=== PATIENT | female | born 1970 ===

== ENCOUNTER 2017-04-13 13:36 | Emergency (ER) | payer SELFPAY ==
--- NOTE | 2017-04-13 13:44 | ER Report ---
History and Physical Time Seen By MD: 13:43 HPI/ROS CHIEF COMPLAINT: Head injury HISTORY OF PRESENT ILLNESS: This is a 46-year-old female who presents to the emergency department with her mother for a head injury. The patient states that at about 8:30 this morning she was walking across a street in [facility] slipped on some ice and fell down to the ground landing on her bottom, and then hit the left side of her head on a wall patient states she is unsure if she lost consciousness, if so it was "for just a few seconds". Patient states that she did have a headache following the injury and did take some Tylenol for the headache. The headache has since then resolved. She does have a "bump" to the left side of her parietal region. Patient denies nausea or vomiting. Patient has no other complaints. Patient states they are traveling through and heading back to [place]. Her oxygen saturation is 88-89% on room air while in the room, she states that she used to wear oxygen but no longer requires it. The patient does have a healing bruise to her left zygoma, she states this is from accidentally hitting herself in the face several days ago with a plastic box. She is anxious, she states she has a history of anxiety, depression and personality disorder. REVIEW OF SYSTEMS: Constitutional: No fever, no chills. Eyes: No discharge. ENT: No sore throat. Cardiovascular: No chest pain, no palpitations. Respiratory: No cough, no shortness of breath. Gastrointestinal: No abdominal pain, no vomiting. Genitourinary: No hematuria. Musculoskeletal: No back pain. Skin: No rashes. Neurological: As above. Allergies: Coded Allergies: Cephalosporins (Verified Allergy, Unknown, 04/13/17) ciprofloxacin (Verified Allergy, Unknown, 04/13/17) clarithromycin (Verified Allergy, Unknown, 04/13/17) sulfamethoxazole (Verified Allergy, Unknown, 04/13/17) trimethoprim (Verified Allergy, Unknown, 04/13/17) Past Medical/Surgical History Patient has a past medical and surgical history of migraines, hypertension, asthma, pneumonia, borderline personality, anxiety, depression, multiple suicide attempts, cholecystectomy, uterine ablation. Reviewed Nurses Notes: Yes Constitutional Vital Sign - Last 24 Hours 04/13/17 04/13/17 04/13/17 04/13/17 13:43 13:44 14:00 14:17 Temp 98.9 Pulse 96 Resp 24 B/P (MAP) 176/101 176/101 (126) 165/103 (123) 141/133 (136) Pulse Ox 87 O2 Delivery Room Air 04/13/17 04/13/17 14:30 14:45 B/P (MAP) 157/98 (117) 149/92 (111) Physical Exam General Appearance: The patient is alert, has no immediate need for airway protection and no signs of toxicity, mildly anxious. Has a therapy dog at bedside. Eyes: Pupils equal and round no pallor or injection. EOMs intact bilaterally. ENT, Mouth: Mucous membranes are moist. TM's intact bilaterally, landmarks noted , cone of light noted, no injection, no hemotympanum. Nasal mucosa pink and moist. Respiratory: There are no retractions, lungs are clear to auscultation. Cardiovascular: Regular rate and rhythm, no murmurs, clicks or rubs. Gastrointestinal: Abdomen is soft and non tender, no masses, bowel sounds normal. Neurological: Alert and oriented 4. Moving all extremity. Following all commands. No focal neuro deficits. Negative Nexus criteria. Skin: Warm and dry, no rashes. Healing bruise to the left zygoma. Hematoma to left parietal region, no stepoffs or depressions noted. Musculoskeletal: Neck is supple non tender. Extremities are nontender, nonswollen and have full range of motion. DIFFERENTIAL DIAGNOSIS: After history and physical exam differential diagnosis was considered for head injury including but not limited to concussion, skull fracture, intraparenchymal contusion, subarachnoid, subdural and epidural hematoma. Medical Decision Making EKG/Imaging Imaging FACILITY: [facility] [place] PATIENT NAME: Crystal Craig : 1970 MR: [id number] V: [id number] EXAM DATE: ORDERING PHYSICIAN: FABRICIO GAMING TECHNOLOGIST: [place] [facility] [place] : 1970 Visit/Account:[id number] Date of Sevice: 04/13/2017 CT Head without contrast Indication: Left-sided head injury. Comparison: None available Technique: Axial CT images were obtained through the brain from the skull base to the vertex without administration of IV contrast. Reformatted coronal and sagittal images were also obtained. One of the following dose optimization techniques was utilized in the performance of this exam: automated exposure control; adjustment of the mA and/ or kV according to the patient's size; or use of an iterative reconstruction technique. Specific details can be referenced in the facility's radiology CT exam operational policy. Findings: No evidence of mass, mass effect, or midline shift. No acute intracranial hemorrhage or acute territorial infarction. No extra-axial fluid collection or hydrocephalus. No abnormal density. Mackenzie/ white matter differentiation appears normal. Bony structures show no fractures or lesions. 1 cm cyst/polyps in the inferior aspect of the right maxillary sinus. The remaining sinuses and mastoids visualized are clear. IMPRESSION: 1. No acute intracranial abnormality. 2. Right maxillary sinus cyst/polyp. Report Dictated By: Hardeep Nugent at 04/13/2017 2:24 PM Report E-Signed By: Hardeep Nugent at 04/13/2017 2:29 PM [id number] ED Course/Re-evaluation ED Course Patient was admitted to [facility]. A history of physical were obtained. Differential diagnoses were considered. Head CT was obtained which was negative. The results were reviewed patient. The patient feels that she can go home at this time. The patient is accompanied by her mother. The patient was encouraged to follow up with her primary care provider when she returns to [place]. Patient was also encouraged to follow up in the nearest emergency department if her symptoms changed or if she became concerned for any reason. Patient was also encouraged to follow up in the ED here if all she is here she has any concerning symptoms. The patient and her mother had no other questions or concerns were discharged home. Decision to Disposition Date: Apr 13, 2017 Decision to Disposition Time: 14:54 Depart Departure Latest Vital Signs Vital Signs Date Time Temp Pulse Resp B/P (MAP) Pulse Ox O2 Delivery O2 Flow Rate FiO2 04/13/17 14:45 149/92 (111) 04/13/17 13:43 98.9 96 24 87 Room Air Impression: Primary Impression: Head injury Additional Impression: Concussion Condition: Improved Disposition: HOME OR SELF-CARE Patient Instructions: Concussion (ED), Head Injury (ED) Additional Instructions: Drink plenty of fluids. Get plenty of rest. If Tylenol is working for headaches continue taking for discomfort. Be sure to follow up with your provider when you return to [place]. If on the way home you have any concerns please follow up with the nearest ED. May return to the ED for worsening symptoms. Problem Qualifiers Primary Impression: Head injury Encounter type: initial encounter Qualified Codes: S09.90XA - Unspecified injury of head, initial encounter Additional Impression: Concussion Encounter type: initial encounter Loss of consciousness presence/duration: without LOC Qualified Codes: S06.0X0A - Concussion without loss of consciousness, initial encounter FABRICIO GAMING-JAH Apr 13, 2017 13:43
--- NOTE | 2017-04-13 14:33 | RADIOLOGY IMAGING REPORT ---
[place] [facility] [place] NAME: Crystal Craig : 1970 MR: [id number] V: [id number] EXAM DATE: ORDERING PHYSICIAN: FABRICIO GAMING TECHNOLOGIST: Location: [facility] Patient: Crystal Craig : 1970 Visit/Account:[id number] Date of Sevice: 04/13/2017 CT Head without contrast Indication: Left-sided head injury. Comparison: None available Technique: Axial CT images were obtained through the brain from the skull base to the vertex without administration of IV contrast. Reformatted coronal and sagittal images were also obtained. One of the following dose optimization techniques was utilized in the performance of this exam: autom ated exposure control; adjustment of the mA and/or kV according to the patient's size; or use of an i terative reconstruction technique. Specific details can be referenced in the facility's radiology CT exam operational policy. Findings: No evidence of mass, mass effect, or midline shift. No acute intracranial hemorrhage or acute territorial infarction. No extra-axial fluid collection or hydrocephalus. No abnormal density. Mackenzie/white matter differentiat ion appears normal. Bony structures show no fractures or lesions. 1 cm cyst/polyps in the inferior aspect of the right maxillary sinus. The remaining sinuses and masto ids visualized are clear. IMPRESSION: 1. No acute intracranial abnormality. 2. Right maxillary sinus cyst/polyp. Report Dictated By: Hardeep Nugent at 04/13/2017 2:24 PM Report E-Signed By: Hardeep Nugent at 04/13/2017 2:29 PM [id number]
[2017-04-13 14:45] VITALS: BP 149/92
== END 2017-04-13 15:06 | disposition home or self-care (01) ==
LOC: ER 14:03
DX: S06.0X0A Concussion without loss of consciousness, initial encounter (principal); S09.90XA Unspecified injury of head, initial encounter; W00.0XXA Fall on same level due to ice and snow, initial encounter
CPT/HCPCS: 70450; 99283